=== PATIENT | female | born 1985 | race Caucasian/White ===

== ENCOUNTER 2016-10-19 13:15 | Emergency (ER) | payer OTHER, BC ==
[2016-10-19] MEDS ORDERED: DIPH,PERTUS(ACELL)TETVAC-LF 0.5 ML VIAL IM ONE (13:56)
[2016-10-19] MEDS ORDERED: RX INFO: IV CONTRAST WAS GIVEN 1 EACH MISC MISCELLANE PRN (13:56)
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
[2016-10-19 14:54] LABS: Appearance,Urine Clear (Clear); Bacteria,Urine Rare /hpf; Bilirubin,Urine Negative (Negative); Glucose,Urine (UA) Negative (Negative); Ketones,Urine 1+ (Negative); Leukocyte Esterase,Urine Small (Negative); Mucus,Urine Rare /hpf; Nitrite,Urine Negative (Negative); Particle Count 3344; Protein,Urine Negative (Negative); RBC,Urine 30 /hpf (0-5); Specific Gravity,Urine 1.018 (1.001-1.035); Squamous Epithelial Cell,Urine 5 /hpf (0-4); UA Billing (MACRO vs. MICRO) MICRO; Urobilinogen,Urine <2.0 mg/dL (<2.0); WBC,Urine 2 /hpf (0-5)
[2016-10-19 15:14] LABS: Basophils # (A) 0.1 k/uL (0-0.2); Basophils % (A) 0 %; CH 31.5; CHCM 35.8; Eosinophils # (A) 0.1 k/uL (0-0.7); Eosinophils % (A) 1 %; HCT 39.6 % (34.0-46.0); HDW 2.84; HGB 13.9 gm/dL (11.4-16.0); Luc # (Auto) 0.15; Luc % (Auto) 1; Lymphocytes # (A) 2.3 k/uL (1.0-4.8); Lymphocytes % (A) 13 %; MCH 31.2 pg (25.0-35.0); MCHC 35.2 g/dL (31.0-37.0); MCV 88.6 fL (80.0-100.0); Mean Platelet Volume 6.7; Monocytes # (A) 0.6 k/uL (0-1.0); Monocytes % (A) 3 %; Neutrophils # (A) 13.9 k/uL (1.3-7.7); Neutrophils % (A) 82 %; RBC 4.47 m/uL (3.80-5.40); RDW 12.9 % (11.5-15.5)
[2016-10-19 15:25] LABS: Partial Thromboplastin Time 22.3 sec (22.0-30.0)
[2016-10-19 15:27] LABS: ALT 80 U/L (9-52); AST 42 U/L (14-36); Alcohol <10 mg/dL; Alkaline Phosphatase 41 U/L (38-126); Anion Gap 9 mmol/L; Blood Urea Nitrogen 15 mg/dL (7-17); Calcium 9.6 mg/dL (8.4-10.2); Carbon Dioxide 21 mmol/L (22-30); Chloride 110 mmol/L (98-107); Glucose 93 mg/dL (74-99); Non-African American GFR(MDRD) >60 (>60 ml/min/1.73 sqM); Potassium 4.4 mmol/L (3.5-5.1); Sodium 140 mmol/L (137-145); Total Bilirubin 0.5 mg/dL (0.2-1.3); Total Protein 6.1 g/dL (6.3-8.2)
[2016-10-19 15:33] LABS: Creatine Kinase 70 U/L (30-135)
[2016-10-19 15:46] LABS: Creatine Kinase MB 0.6 ng/mL (0.0-2.4); Troponin I <0.012 ng/mL (0.000-0.034)
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
[2016-10-19] MEDS ORDERED: HYDROcodone/APAP 5-325MG 1 EACH TAB PO STA (17:01)
[2016-10-19 17:38] VITALS: BP 153/77; PULSE 83; RESP 17; TEMP 97.6
== END 2016-10-19 17:47 | disposition home or self-care (01) ==
LOC: EC 13:15
DX: S92.342A Displaced fracture of fourth metatarsal bone, left foot, initial encounter for closed fracture (principal); S20.211A Contusion of right front wall of thorax, initial encounter; S80.211A Abrasion, right knee, initial encounter; F17.200 Nicotine dependence, unspecified, uncomplicated; Z23 Encounter for immunization; V87.7XXA Person injured in collision between other specified motor vehicles (traffic), initial encounter; Y92.410 Unspecified street and highway as the place of occurrence of the external cause
CPT/HCPCS: 36415; 86900; 86901; 80053; 82550; 82553; 84484; 85025; 85610; 85730; 86850; 81001; 81025; 80306; 80320; 73030; 73562; 73630; 71260; 74177; 90715; 99285; 90471; Q9967

== ENCOUNTER → 2019-03-29 | Outpatient (CLI) | payer BC, OTHER ==
[2019-03-29 18:35] LABS: Basophils # (A) 0.1 k/uL (0-0.2); Basophils % (A) 0 %; Eosinophils # (A) 0.2 k/uL (0-0.7); Eosinophils % (A) 2 %; HCT 37.8 % (34.0-46.0); HGB 13.3 gm/dL (11.4-16.0); Lymphocytes # (A) 1.6 k/uL (1.0-4.8); Lymphocytes % (A) 14 %; MCH 31.5 pg (25.0-35.0); MCHC 35.2 g/dL (31.0-37.0); MCV 89.5 fL (80.0-100.0); Mean Platelet Volume 7.5; Monocytes # (A) 0.6 k/uL (0-1.0); Monocytes % (A) 5 %; Neutrophils # (A) 9.3 k/uL (1.3-7.7); Neutrophils % (A) 77 %; Platelet Count 364 k/uL (150-450); RBC 4.22 m/uL (3.80-5.40); RDW 12.3 % (11.5-15.5)
== END | disposition home or self-care (01) ==
LOC: LABMAIN 15:56
PROVIDERS: ATTEND Obstetrics & Gynecology
DX: Z01.812 Encounter for preprocedural laboratory examination (principal)
CPT/HCPCS: 36415; 85025

== ENCOUNTER 2019-04-01 06:32 | Day surgery (SDC) | payer BC, OTHER ==
[2019-03-31 08:27] VITALS: BMI 34.7
--- NOTE | 2019-03-31 12:04 | HP ---
HISTORY AND PHYSICAL PREOPERATIVE HISTORY AND PHYSICAL: DATE OF SURGERY: April 01, 2019 HISTORY OF PRESENT ILLNESS: The patient is a 33-year-old 1, para 1-0-0-1, who presents from Dr. Kidd for removal of Nexplanon and subsequent tubal ligation. The Nexplanon had been in place since 2013 and she had not been using any other form of contraception since that time. She reports an interest in permanent sterilization with tubal occlusion using Filshie clips. We had a long discussion regarding other reversible methods which are available to which she has declined, preferring instead to have permanent sterilization as noted above. 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 PAST SURGICAL HISTORY: Significant only for an inguinal hernia repair. There were no apparent anesthetic concerns. OBSTETRICAL HISTORY: 1, para 1-0-0-1 with one term vaginal delivery without complications. Current contraception is not in place as the Nexplanon several years ago and has been removed. GYNECOLOGIC HISTORY: Unremarkable with no history of any infections to include STDs recently. FAMILY HISTORY: Noncontributory. SOCIAL HISTORY: The patient is and works outside the home at [employer]. She is a 1 pack per day smoker and reports occasional alcohol and no other social concerns. CURRENT MEDICATIONS: None. ALLERGIES: No known drug allergies. REVIEW OF SYSTEMS: Review of systems is confined to history of present illness. PHYSICAL EXAMINATION: In general, this is a well-developed, well-nourished white female in no acute distress. Her heart has a regular rhythm and rate without murmur. Her lungs are clear to auscultation bilaterally in all bhatti. Her abdomen is nondistended, has normoactive bowel sounds, soft, nontender, without any palpable masses, hepatosplenomegaly, or hernias. Her extremities are without any cyanosis, clubbing, or edema and are nontender to palpation bilaterally. Pelvic examination demonstrates normal external genitalia and BUS with normal vaginal mucosa and cervix. There is no cervical motion tenderness. Uterus is 4 to 5 weeks in size, slightly retroverted, mobile, nontender, normal in shape. The adnexa are normal and nontender without mass bilaterally. ASSESSMENT AND PLAN: Contraception: The patient has requested permanent sterilization understanding the permanent nature of it. We discussed multiple other reversible options which she has declined. She prefers instead to proceed with laparoscopic bilateral tubal occlusion with Filshie clips. The risks and complications of the procedure have been thoroughly discussed including the risks for bleeding, bleeding requiring transfusion, infection, and injury to local structures to specifically include the bowel, bladder, and ureters. She has understood all this and agreed to proceed. She does also understand the failure rate of tubal ligation as well as its permanent nature and the potential risk for ectopic should it fail. SUMMER / IJN: [id number] /
[~2019-04-01 06:32] MED LIST: DEXAMETHASONE SOD PHOSPHATE 10 MG/ML 1 ML VIAL IV ONE; HYDROmorphone 0.5 MG/0.5 ML SYRINGE IVP PRN; LACTATED RINGERS 1,000 ML IV SCH; LIDOCAINE 1% 20 ML VIAL (10MG/ML) FOR IV START INTRADERMA PRN; ONDANSETRON 4 MG/2 ML VIAL IVP ONE; Pre Op ABX Message 1 EACH MISC MISCELLANE ONE
[2019-04-01] MEDS ORDERED: LIDOCAINE 1% INJ 10MG/ML (20 ML MDV) ONE (07:29)
[2019-04-01] MEDS ORDERED: GLYCOPYRROLATE 0.2 MG/ML 2 ML VIAL ONE (07:29)
[2019-04-01] MEDS ORDERED: PROPOFOL 10 MG/ML 20 ML VIAL IV ONE (07:29)
[2019-04-01] MEDS ORDERED: KETOROLAC 30 MG/ML 1 ML VIAL ONE (07:29)
[2019-04-01] MEDS ORDERED: fentaNYL (PF) 50 MCG/ML 2 ML AMP ONE (07:29)
[2019-04-01] MEDS ORDERED: NEOSTIGMINE 1 MG/ML 10 ML VIAL ONE (07:29)
[2019-04-01] MEDS ORDERED: MIDAZOLAM 2 MG/2 ML VIAL ONE (07:29)
[2019-04-01] MEDS ORDERED: ROCURONIUM BROMIDE 10 MG/ML 10 ML VIAL IV ONE (07:29)
[2019-04-01] MEDS ORDERED: BUPIVACAINE (PF) 0.5% 30 ML VIAL SQ ONE (08:05)
[2019-04-01] MEDS ORDERED: diphenhydrAMINE 50 MG/ML 1 ML VIAL IVP PRN (08:33)
[2019-04-01] MEDS ORDERED: METOCLOPRAMIDE 5 MG/ML 2 ML VIAL IVP PRN (08:33)
[2019-04-01] MEDS ORDERED: SIMETHICONE 80 MG CHEWABLE PO PRN (08:33)
[2019-04-01] MEDS ORDERED: Acetaminophen-Codeine 300-30mg TAB PO PRN ×2 (08:33)
[2019-04-01] MEDS ORDERED: ONDANSETRON 4 MG/2 ML VIAL IVP PRN (08:33)
[2019-04-01] MEDS ORDERED: IBUPROFEN 600 MG TAB PO PRN (08:33)
[2019-04-01] MEDS ORDERED: KETOROLAC 30 MG/ML 1 ML VIAL IVP PRN (08:33)
[2019-04-01 08:40] VITALS: TEMP 97.1
--- NOTE | 2019-04-01 08:41 | P.OP ---
Date of Procedure: 04/01/19 Preoperative Diagnosis: #1. Undesired fertility Postoperative Diagnosis: Same Procedure(s) Performed: #1. Laparoscopic bilateral tubal occlusion/fulguration with bipolar cautery Anesthesia: ANA ROSA Surgeon: Juan Luis Frederick Estimated Blood Loss (ml): 2 IV fluids (ml): 500 Urine output (ml): 10 Pathology: none sent Condition: stable Disposition: PACU Operative Findings: Preoperative pelvic examination demonstrated a 4-5 week slightly anteverted mobile normal shaped uterus with normal adnexa bilaterally. Intraoperatively, the uterus was noted to be entirely normal though the bilateral fallopian tubes were both clubbed and to some extent scarred into the ovarian fossa bilaterally. There were some filmy adhesions both in the pelvis and in the upper abdomen with some adhesions noted between the liver and the anterior abdominal wall, so- called Whitley Xavier syndrome. The ovaries were otherwise normal to inspection and there was no other evidence of pathology in the pelvis. The large and small intestines as well as the appendix were normal to inspection. Description of Procedure: The patient was prepped and draped in usual fashion after general endotracheal anesthesia was administered by the anesthesiologist. A speculum was placed and the anterior lip of the cervix grasped with single-tooth tenaculum allowing placement of an acorn cannula for uterine manipulation. The speculum was then removed and the bladder drained of approximately 10 mL of clear antonio urine. Attention was turned to the abdomen where a roughly 5 mm incision was made in the vertical fold of the umbilicus allowing insertion of a 5 mm optical trocar under direct visualization without difficulty. A pneumoperitoneum was instilled and Trendelenburg positioning utilized. A site was selected approximately 4-5 cm above the pubic symphysis in the midline where an 8 mm incision was made in the transverse plane allowing insertion of an 8 mm trocar under direct visualization without difficulty. A blunt probe was utilized to sweep the bowel from the pelvis in the findings are as noted above. Some of the filmy adhesions were lysed bluntly with the probe. The probe was then replaced with a Meir bipolar cautery forceps which was utilized to cauterize or fulgurate approximately 3-4 cm of each fallopian tube beginning in the isthmic portion approximately 1-2 cm from the cornu and proceeded along the length of the tube. There was only a minor amount of difficulty and this as the tubes were somewhat adherent to the ovarian fossa at the fimbriated end and therefore less mobile. Nevertheless, it was carried out without incident. The remainder of the abdomen was explored with the findings as noted above. The instrumentation was then removed and the pneumoperitoneum thoroughly evacuated through both of the ports which were then removed as well. The skin was closed with interrupted subcuticular stitches of 4-0 Vicryl followed by Steri-Strips and Band-Aids. The 2 incisions were injected with a total of 10 mL of half percent Marcaine without epinephrine equally divided between the 2 incisions. Estimated blood loss for the case was 2 mL or less. There were no complications. All sponge, in strument, and needle counts were correct. The patient tolerated the procedure well and proceeded to the recovery room in stable condition.
[2019-04-01] MEDS ORDERED: LACTATED RINGERS 1,000 ML IV SCH (08:45)
[2019-04-01 09:58] VITALS: RESP 18
[2019-04-01] MEDS ORDERED: Acetaminophen-Codeine 300-30mg TAB PO ONE (09:59)
[2019-04-01 10:31] VITALS: BP 115/78; PULSE 63
== END 2019-04-01 11:00 | disposition home or self-care (01) ==
LOC: OR 06:32
PROVIDERS: ATTEND Obstetrics & Gynecology
DX: Z30.2 Encounter for sterilization (principal); E66.9 Obesity, unspecified; Z87.891 Personal history of nicotine dependence; Z86.19 Personal history of other infectious and parasitic diseases; Z98.890 Other specified postprocedural states; Z68.35 Body mass index [BMI] 35.0-35.9, adult
CPT/HCPCS: 81025; 58670; J2250; J1100; J2710; J2405; J2001; J3010; J1885; J2704

== ENCOUNTER 2020-11-09 03:48 | Emergency (ER) | payer BC, OTHER ==
[2020-11-09 04:01] VITALS: BP 126/90; PULSE 68; RESP 22; TEMP 98
[2020-11-09] MEDS ORDERED: PROPARACAINE 0.5% OPHTH DROPS 15 ML BTL LEFT EYE STA (04:25)
--- NOTE | 2020-11-09 04:30 | ED ---
Eye Problem HPI - General Chief complaint: Eye Problems Stated complaint: Eye Pain Time Seen by Provider: 11/09/20 03:55 Source: patient, RN notes reviewed, old records reviewed Mode of arrival: ambulatory Limitations: no limitations - History of Present Illness Initial comments: This is a 34-year-old female to the ER for evaluation of severe left-sided eye pain. Patient put a contact in and non-family solution forgot, placed sick contact in her left eye and has severe pain burning and redness in the left eye. Patient had pain throughout the night presents here with that as her complaint. Redness of the eye. Some tearing of the left eye, no loss of vision chief complaint: eye pain -: hour(s) Onset Description: sudden Location: left eye Place: home If Injury: none Eye Symptoms: burning, redness, pain, foreign body sensation Severity: severe Severity scale (1-10): 7 If Pain, Quality: sharp Consistency: constant Context: contact lens use Associated Symptoms: none Treatments Prior to Arrival: none - Related Data Home Medications Medication Instructions Recorded Confirmed No Known Home Medications 03/31/19 04/01/19 Allergies Allergy/AdvReac Type Severity Reaction Status Date / Time No Known Allergies Allergy Verified 11/09/20 04:01 Review of Systems ROS Statement: Those systems with pertinent positive or pertinent negative responses have been documented in the HPI. ROS Other: All systems not noted in ROS Statement are negative. Past Medical History Past Medical History: No Reported History Additional Past Medical History / Comment(s): Vitamin D deficiency History of Any Multi-Drug Resistant Organisms: None Reported Past Surgical History: Hernia Repair Past Psychological History: Anxiety, Depression Smoking Status: Current every day smoker Past Alcohol Use History: Occasional Past Drug Use History: Marijuana General Exam - General Exam Comments Initial Comments: Left eye conjunctivitis fluorescein does show abrasion symptoms resolved with proparacaine Limitations: no limitations General appearance: alert, in no apparent distress Head exam: Present: atraumatic, normocephalic, normal inspection Eye exam: Present: normal appearance, PERRL, EOMI. Absent: scleral icterus, conjunctival injection, periorbital swelling ENT exam: Present: normal exam, mucous membranes moist Neck exam: Present: normal inspection. Absent: tenderness, meningismus, lymphadenopathy Respiratory exam: Present: normal lung sounds bilaterally. Absent: respiratory distress, wheezes, rales, rhonchi, stridor Cardiovascular Exam: Present: regular rate, normal rhythm, normal heart sounds. Absent: systolic murmur, diastolic murmur, rubs, gallop, clicks GI/Abdominal exam: Present: soft, normal bowel sounds. Absent: distended, tenderness, guarding, rebound, rigid Extremities exam: Present: normal inspection, full ROM, normal capillary refill. Absent: tenderness, pedal edema, joint swelling, calf tenderness Back exam: Present: normal inspection Neurological exam: Present: alert, oriented X3, CN II-XII intact Psychiatric exam: Present: normal affect, normal mood Skin exam: Present: warm, dry, intact, normal color. Absent: rash Course Vital Signs 11/09/20 03:57 Temperature 98 F Pulse Rate 68 Respiratory 22 Rate Blood Pressure 126/90 O2 Sat by Pulse 100 Oximetry - Reevaluation(s) Reevaluation #1: 11/09/20 05:29 Record is reviewed Reevaluation #2: 11/09/20 05:29 Symptoms have been resolved Reevaluation #3: 11/09/20 05:29 Patient is aware findings and questions answered Medical Decision Making - Medical Decision Making 34 female DF for evaluation patient Dese for evaluation regards to left eye pain severe secondary to chemical reaction of contact eyeglass lens generator. Symptoms resolved here in the ER placed on antibiotics and can be discharged home Disposition Clinical Impression: Bacterial conjunctivitis, Corneal abrasion of left eye due to contact lens Disposition: HOME SELF-CARE Condition: Good Instructions (If sedation given, give patient instructions): Corneal Abrasion (ED) Is patient prescribed a controlled substance at d/c from ED?: No Referrals: None,Stated [Primary Care Provider] - 1-2 days
[2020-11-09] MEDS ORDERED: POLYMYXIN B-TRIMETHOPRIM SULF (10,000-1) OPHTH DROPS 10 ML BTL LEFT EYE ONE (04:35)
== END 2020-11-09 05:42 | disposition home or self-care (01) ==
LOC: EC 03:48
DX: H18.822 Corneal disorder due to contact lens, left eye (principal); H10.9 Unspecified conjunctivitis; F32.9 Major depressive disorder, single episode, unspecified; F41.9 Anxiety disorder, unspecified; F17.200 Nicotine dependence, unspecified, uncomplicated; F12.90 Cannabis use, unspecified, uncomplicated
CPT/HCPCS: 99283

== ENCOUNTER 2023-05-30 22:03 | Emergency (ER) | payer OTHER, BC ==
--- NOTE | 2023-05-31 00:01 | ED ---
Eye Problem HPI - General Chief complaint: Eye Problems Stated complaint: [facility] - chemical exposure Time Seen by Provider: 05/30/23 22:46 Source: patient Mode of arrival: ambulatory Limitations: no limitations - History of Present Illness Initial comments: 37-year-old female presenting to the ED after chemical exposure. Patient works at [employer]. States that she was using toluene as a solvent to clean glue when she accidentally dropped a bucket and was splashed with this. States she is unsure if any got into her eyes notes she had a small amount going to her mouth. States immediately after irrigated her eyes and her entire body and now presents to the ED for further evaluation. No chest pain shortness of breath or other complaints however patient notes irritation to exposed areas on the skin and dryness of her eyes. - Related Data Home Medications Medication Instructions Recorded Confirmed No Known Home Medications 03/31/19 06/01/22 Allergies Allergy/AdvReac Type Severity Reaction Status Date / Time No Known Allergies Allergy Verified 05/30/23 22:10 Review of Systems ROS Statement: Those systems with pertinent positive or pertinent negative responses have been documented in the HPI. ROS Other: All systems not noted in ROS Statement are negative. Past Medical History Past Medical History: No Reported History Additional Past Medical History / Comment(s): Vitamin D deficiency, abnormal cells of pap smear History of Any Multi-Drug Resistant Organisms: None Reported Past Surgical History: Hernia Repair Additional Past Surgical History / Comment(s): inguinal hernia Past Anesthesia/Blood Transfusion Reactions: No Reported Reaction Additional Past Anesthesia/Blood Transfusion Reaction / Comment(s): no blood transfusions Past Psychological History: Anxiety, Depression Smoking Status: Current every day smoker - Past Family History Mother Family Medical History: No Reported History Father Family Medical History: No Reported History General Exam Limitations: no limitations General appearance: alert, in no apparent distress Eye exam: Present: normal appearance, PERRL, EOMI Neck exam: Present: normal inspection Respiratory exam: Present: normal lung sounds bilaterally Cardiovascular Exam: Present: regular rate, normal rhythm GI/Abdominal exam: Present: soft Extremities exam: Present: normal inspection Back exam: Present: normal inspection Neurological exam: Present: alert, oriented X3 Skin exam: Present: warm, dry Course Vital Signs 05/30/23 05/31/23 22:08 00:12 Temperature 98.2 F 98.1 F Pulse Rate 78 67 Respiratory 16 18 Rate Blood Pressure 121/88 133/90 O2 Sat by Pulse 97 98 Oximetry Medical Decision Making - Medical Decision Making Was pt. sent in by a medical professional or institution ([facility], [employer], urgent care, hospital, or retirement...) When possible be specific @ -No Did you speak to anyone other than the patient for history (EMS, parent, family, police, friend...)? What history was obtained from this source @ -No Did you review nursing and triage notes (agree or disagree)? Why? @ -I reviewed and agree with nursing and triage notes Were old charts reviewed (outside hosp., previous admission, EMS record, old EKG, old radiological studies, urgent care reports/EKG's, retirement records)? Report findings @ -No old charts were reviewed Differential Diagnosis (chest pain, altered mental status, abdominal pain women, abdominal pain men, vaginal bleeding, weakness, fever, dyspnea, syncope, headache, dizziness, GI bleed, back pain, seizure, CVA, palpatations, mental health, musculoskeletal)? @ -Not applicable EKG interpreted by me (3pts min.). @ -None X-rays interpreted by me (1pt min.). @ -None done CT interpreted by me (1pt min.). @ -None done U/S interpreted by me (1pt. min.). @ -None done What testing was considered but not performed or refused? (CT, X-rays, U/S, labs)? Why? @ -None What meds were considered but not given or refused? Why? @ -None Did you discuss the management of the patient with other professionals (professionals i.e. [facility], [employer], lab, RT, psych nurse, social psychologist, nursing admin, teacher, tax revenue officer, case coordinator)? Give summary @ -Spoke to poison control who reported symptoms will be self-limited. Advised if not already to irrigate eyes exposed areas. For symptomatic control advised use of artificial tears and use of non-fragrance moisturizers. Was smoking cessation discussed for >3mins.? @ -No Was critical care preformed (if so, how long)? @ -No Were there social determinants of health that impacted care today? How? (Homel essness, low income, unemployed, alcoholism, drug addiction, transportation, low edu. Level, literacy, decrease access to med. care, residential, rehab)? @ -No Was there de-escalation of care discussed even if they declined (Discuss DNR or withdrawal of care, Hospice)? DNR status @ -No What co-morbidities impacted this encounter? (DM, HTN, Smoking, COPD, CAD, Cancer, CVA, ARF, Chemo, Hep., AIDS, mental health diagnosis, sleep apnea, morbid obesity)? @ -None Was patient admitted / discharged? Hospital course, mention meds given and route, prescriptions, significant lab abnormalities, going to OR and other pertinent info. @ -Discharge 37-year-old female presents to the ED after exposure to toluene. Patient reports that this was splashed on her body and may have had some on her eyes and mouth. Patient immediately irrigated after now presented to the ED for further evaluation. Spoke to poison control who reports symptoms will be self-limited and advised for symptomatic control advised use of artificial tears and use of non-fragrance moisturizers. Patient discharged home in stable condition. Discussed return precautions with patient who verbalized agreement. Undiagnosed new problem with uncertain prognosis? @ -No Drug Therapy requiring intensive monitoring for toxicity (Heparin, Nitro, Insulin, Cardizem)? @ -No Were any procedures done? @ -No Diagnosis/symptom? @ -Toluene exposure Acute, or Chronic, or Acute on Chronic? @ -Acute Uncomplicated (without systemic symptoms) or Complicated (systemic symptoms)? @ -Uncomplicated Side effects of treatment? @ -No Exacerbation, Progression, or Severe Exacerbation? @ -No Poses a threat to life or bodily function? How? (Chest pain, [place], [place], pneumonia, PE, COPD, DKA, ARF, appy, cholecystitis, CVA, Diverticulitis, Homicidal, Suicidal, threat to staff... and all critical care pts) @ -No Disposition Clinical Impression: Toxic effect of toluene Disposition: HOME SELF-CARE Condition: Good Additional Instructions: Please return to the Emergency Department if symptoms worsen or any other concerns. Please monitor for any new or worsening symptoms. Is patient prescribed a controlled substance at d/c from ED?: No Referrals: Graham Kidd MD [Primary Care Provider] - 1-2 days Time of Disposition: 00:30
[2023-05-31 00:23] VITALS: BP 133/90; PULSE 67; RESP 18; TEMP 98.1
== END 2023-05-31 01:25 | disposition home or self-care (01) ==
LOC: EC 22:03
DX: T52.2X1A Toxic effect of homologues of benzene, accidental (unintentional), initial encounter (principal); F17.200 Nicotine dependence, unspecified, uncomplicated; Z86.59 Personal history of other mental and behavioral disorders
CPT/HCPCS: 99283